=== PATIENT | male | born 1970 | race Caucasian/White ===

== ENCOUNTER → 2020-08-28 | Outpatient (CLI) | payer MEDICARE, BC | LOC: KOH-I 08:00 | DX: R74.8 Abnormal levels of other serum enzymes (principal); K76.0 Fatty (change of) liver, not elsewhere classified | CPT/HCPCS: 76705 ==

== ENCOUNTER 2020-09-20 21:41 | Emergency (ER) | payer MEDICARE, BC | END 2020-09-21 01:00 | disposition home or self-care (01) | LOC: ER1 21:41 | DX: B08.1 Molluscum contagiosum (principal); I10 Essential (primary) hypertension; Z88.5 Allergy status to narcotic agent | CPT/HCPCS: 99282 ==

== ENCOUNTER → 2020-12-05 | Outpatient (CLI) | payer MEDICARE, BC | LOC: EXRD 09:10 | DX: R74.8 Abnormal levels of other serum enzymes (principal); K76.89 Other specified diseases of liver | CPT/HCPCS: 76705 ==

== ENCOUNTER → 2022-02-05 | Outpatient (CLI) | payer MEDICARE, BC | LOC: KOH-I 15:15 | DX: R10.11 Right upper quadrant pain (principal); N20.0 Calculus of kidney | CPT/HCPCS: 74176 ==